=== PATIENT | male | born 2005 | race Caucasian/White ===

== ENCOUNTER 2023-06-22 18:30 | Emergency (ER) | payer OTHER ==
[~2023-06-22] VITALS: Ht 182.9 cm; Wt 58.0 kg
[2023-06-22 18:55] VITALS: BP 126/84; PULSE 98; RESP 20; TEMP 98.2; O2SAT 100
[2023-06-22] MEDS ORDERED: MORPHINE SULFATE 4 MG/ML CPJ (NOT FOR IM USE) IV ONE (19:00)
[2023-06-22] MEDS ORDERED: ONDANSETRON HCL 4MG/2ML INJ IV ONE (19:00)
[2023-06-22 19:28] LABS: BASOPHILS % 0.6 % (0.0-2.0); EOSINOPHILS % 0.7 % (0.0-5.0); HEMOGLOBIN. 15.6 g/dL (14.0-18.0); LYMPHOCYTES % 11.1 % (20.0-50.0); MEAN CORPUSCULAR HEMOGLOBIN 29.2 pg (28.0-32.0); MEAN CORPUSCULAR HGB CONC 34.6 g/dL (31.0-37.0); MEAN CORPUSCULAR VOLUME 84.2 fL (80.0-94.0); MEAN PLATELET VOLUME 11.1 fl (7.4-10.4); NEUTROPHILS % 81.6 % (40.0-76.0); PLATELET 209 x1000/uL (130-400); RED BLOOD CELL COUNT 5.35 mill/uL (4.7-6.1); RED CELL DISTRIBUTION WIDTH 13.1 % (11.6-14.6); WHITE BLOOD COUNT 11.9 x1000/uL (4.5-11.0)
[2023-06-22 19:34] LABS: CHLORIDE 103 mEq/L (98-107); INDEX HEMOLYSI 1 (1-3); INDEX ICTERIC 1 (1-4); INDEX LIPEMIC 1 (1-3); POTASSIUM 3.3 mEq/L (3.5-5.1); SODIUM 136 mEq/L (136-145)
[2023-06-22 19:35] LABS: PROTHROMBIN TIME 11.1 sec (9.6-11.0)
[2023-06-22 19:45] LABS: ALANINE AMINOTRANSFERASE 17 IU/L (13-61); ALBUMIN 4.3 g/dL (3.4-5.0); ASPARTATE AMINOTRANSFERASE 13 IU/L (15-37); BILIRUBIN TOTAL 0.6 mg/dL (0.1-1.0); CALCIUM 9.5 mg/dL (8.5-10.1); CARBON DIOXIDE 24 mEq/L (21-32); CREATININE 0.8 mg/dL (0.6-1.3); GLUCOSE 108 mg/dL (70-105); UREA NITROGEN BLOOD 14 mg/dL (7-21)
[2023-06-22] MEDS ORDERED: TOPUD PO (20:48)
[2023-06-22] MEDS ORDERED: ONDA4TAB50 PO (20:48)
== END 2023-06-22 21:20 | disposition left against medical advice (07) ==
LOC: EDBD 18:30 → ER 18:30
DX: R10.813 Right lower quadrant abdominal tenderness (principal); R10.31 Right lower quadrant pain
CPT/HCPCS: 36415; 74176; 80053; 85025; 99284